=== PATIENT | male | born 1980 | race Two or more races ===

== ENCOUNTER 2022-04-12 19:57 | Emergency (ER) | payer OTHER ==
[~2022-04-12] VITALS: Ht 172.7 cm; Wt 83.9 kg
[2022-04-12 20:01] VITALS: BP 142/102
--- NOTE | 2022-04-12 20:03 | NUR ---
[employer] at bedside.
--- NOTE | 2022-04-12 20:03 | NUR ---
Patient taken to bed 1.
[2022-04-12 20:05] VITALS: BP 142/102
--- NOTE | 2022-04-12 20:24 | NUR ---
Dr. Tierney examining patient.
--- NOTE | 2022-04-12 20:34 | NUR ---
Patient D/C to custody.
== END 2022-04-12 20:34 ==
LOC: MED 19:57
DX: F10.129 Alcohol abuse with intoxication, unspecified (principal); Y90.9 Presence of alcohol in blood, level not specified; V49.88XA Car occupant (driver) (passenger) injured in other specified transport accidents, initial encounter; Y93.89 Activity, other specified; Y92.89 Other specified places as the place of occurrence of the external cause; Y99.8 Other external cause status
CPT/HCPCS: 99283

== ENCOUNTER 2022-11-13 05:00 | Emergency (ER) | payer SELFPAY ==
[~2022-11-13] VITALS: Ht 177.8 cm; Wt 109.8 kg
[2022-11-13 05:08] VITALS: BP 140/87
--- NOTE | 2022-11-13 05:23 | NUR ---
PT TO ROOM 4
--- NOTE | 2022-11-13 05:38 | NUR ---
ASSUMED CARE, PT STATES HX OF ALCOHOL ABUSE , SOBER FOR 5 MON, BUT THIS WEEKEND HE HURT HIS BACK FROM LIFTING , SO HE STARTED DRINKING AGAIN, TREMORS , NO VISUAL OR AUDITORY HALLUCINATION, NO NAUSEA,NO MARCANO OR ITCHING
[2022-11-13] MEDS ORDERED: KETOROLAC 15 MG/ML VIAL IVP ONE (06:30)
[2022-11-13] MEDS ORDERED: LIDOCAINE 5% 1 EA PATCH TP ONE (06:30)
[2022-11-13] MEDS ORDERED: DIAZEPAM PFS 10 MG/2 ML SYR IVP ONE (06:30)
--- NOTE | 2022-11-13 06:30 | NUR ---
AT TO EXAMINE PT
--- NOTE | 2022-11-13 06:50 | NUR ---
MEDS GIVEN ORDERED
[2022-11-13 06:51] VITALS: BP 124/38
--- NOTE | 2022-11-13 07:21 | NUR ---
REPORT GIVEN TO KAJAL REILLY
[2022-11-13] MEDS ORDERED: LIB25 PO (08:48)
[2022-11-13] MEDS ORDERED: NAPR-1560 PO (08:48)
[2022-11-13] MEDS ORDERED: LID5T TP (08:48)
--- NOTE | 2022-11-13 09:12 | NUR ---
Patient discharged with v/s stable. Written and verbal after care instructions given and explained. Patient alert, oriented and verbalized understanding of instructions. Ambulatory with steady gait. All questions addressed prior to discharge. ID band removed. Patient advised to follow up with PMD. Rx of LIBRIUM, LIDODERM PATCH, NAPROXEN given. Patient educated on indication of medication including possible reaction and side effects. Opportunity to ask questions provided and answered.
== END 2022-11-13 09:11 | disposition home or self-care (01) ==
LOC: MED 05:00
DX: F10.239 Alcohol dependence with withdrawal, unspecified (principal); M54.50 Low back pain, unspecified; Z79.899 Other long term (current) drug therapy; Z79.1 Long term (current) use of non-steroidal anti-inflammatories (NSAID)
CPT/HCPCS: 96374; 96375; 99284; J1885; J3360